=== PATIENT | male | born 1995 | race Caucasian/White ===

== ENCOUNTER 2016-09-19 12:05 | Emergency (ER) | payer MEDICAID ==
[2016-09-19 12:08] VITALS: BMI 25.3
[2016-09-19 12:10] VITALS: BP 126/78; PULSE 82; RESP 15; TEMP 98.6; O2SAT 99
[2016-09-19] MEDS ORDERED: Neomycin/Polymyxin/Hydrocort Otic Susp (10 ml) AS STA (12:41)
--- NOTE | 2016-09-19 12:51 | ED PDOC ---
Arrival/HPI - General Chief Complaint: ENT Problem Time Seen by Provider: 09/19/16 12:30 Historian: Patient - History of Present Illness Narrative History of Present Illness (Text): 09/19/16 12:47 This 21 yo male presents to this ED c/o left ear pain x 2 days. Pain is worsen if ear lobe is pulled. Denies facial or scalp rash. Denies ear trauma, or discharge. Time/Duration: Other (2 days) Symptom Onset: Sudden Symptom Course: Worsening Context: Home Past Medical History - Provider Review Nursing Documentation Reviewed: Yes - Past History Past History: No Previous - Infectious Disease Hx of Infectious Diseases: None - Tetanus Immunization Tetanus Immunization: Unknown, Up to Date - Past Medical History Past Medical History: No Previous - Psychiatric Hx Substance Use: No - Past Surgical History Past Surgical History: No Previous Family/Social History - Physician Review Nursing Documentation Reviewed: Yes Family/Social History: No Known Family HX Smoking Status: Never Smoked Hx Alcohol Use: No Hx Substance Use: No Allergies/Home Meds Allergies/Adverse Reactions: Allergies No Known Allergies Allergy (Verified 09/19/16 12:08) Review of Systems - Review of Systems Constitutional: Normal. absent: Fatigue, Weight Change, Fevers Eyes: Normal ENT: Other (left ear pain) Respiratory: Normal Cardiovascular: Normal Gastrointestinal: Normal Genitourinary Male: Normal Musculoskeletal: Normal Skin: Normal Neurological: Normal Endocrine: Normal Hemo/Lymphatic: Normal Psychiatric: Normal Physical Exam Vital Signs Temp Pulse Resp BP Pulse Ox 09/19/16 12:08 98.6 F 82 15 126/78 99 Temperature: Afebrile Blood Pressure: Normal Pulse: Regular Respiratory Rate: Normal Appearance: Positive for: Well-Appearing, Non-Toxic, Comfortable Pain Distress: None Mental Status: Positive for: Alert and Oriented X 3 - Systems Exam Head: Present: Atraumatic, Normocephalic Pupils: Present: PERRL Extroacular Muscles: Present: EOMI Conjunctiva: Present: Normal Ears: Present: Erythema, Other (right ear is normal). No: Normal Canal, TM Bulging, Fluid, TM Perf Mouth: Present: Moist Mucous Membranes Pharnyx: Present: Normal. No: ERYTHEMA, TONSILS ENLARGED Neck: Present: Normal Range of Motion Respiratory/Chest: Present: Clear to Auscultation, Good Air Exchange. No: Respiratory Distress, Accessory Muscle Use Cardiovascular: Present: Regular Rate and Rhythm, Normal S1, S2. No: Murmurs Back: Present: Normal Inspection Upper Extremity: Present: Normal Inspection, Normal ROM, Capillary Refill < 2s. No: Cyanosis, Edema Lower Extremity: Present: Normal Inspection, NORMAL PULSES, Normal ROM. No: Edema Neurological: Present: GCS=15, CN II-XII Intact, Speech Normal, Motor Func Grossly Intact, Normal Sensory Function, Normal Cerebellar Funct, Gait Normal Skin: Present: Warm, Dry, Normal Color. No: Rashes Psychiatric: Present: Alert, Oriented x 3, Normal Insight, Normal Concentration Medical Decision Making ED Course and Treatment: 09/19/16 12:50 Re-evaluation. Patient feels better. Discussed results and plan with patient who expresses understanding. All questions answered and there is agreement with the plan to discharge home with instructions. Patient stable for discharge. Return if symptoms persist or worsen. Re-evaluation Time: 12:50 Reassessment Condition: Re-examined, Improved - Medication Orders Current Medication Orders: Discontinued Medications Amoxicillin (Amoxil 500 Mg Cap) 500 mg PO STAT STA PRN Reason: Protocol Stop: 09/19/16 12:42 Neomycin/Polymyxin/Hydrocortisone (Cortisporin Otic Susp) 1 ml STAT STA Stop: 09/19/16 12:42 - Procedure PROCEDURE NOTE (Text): 09/19/16 12:51 Left ear canal was irrigated with luke water. Disposition/Present on Arrival - Present on Arrival Any Indicators Present on Arrival: No History of DVT/PE: No History of Uncontrolled Diabetes: No Urinary Catheter: No History of Decub. Ulcer: No History Surgical Site Infection Following: None - Disposition Have Diagnosis and Disposition been Completed?: Yes Diagnosis: Otitis externa Disposition: HOME/ ROUTINE Disposition Time: 12:51 Patient Plan: Discharge Condition: GOOD Discharge Instructions (ExitCare): Otitis Externa (ED) Additional Instructions: Call private doctor for follow up visit in 1-2 days. Take medication as instructed. Return to emergency if symptoms worsen. Call ENT doctor for revaluation. Prescriptions: Amoxicillin [Amoxil 500 mg Cap] 500 mg PO TID #30 cap Neomycin/Polymyxin/Hydrocort [Cortisporin Otic Soln] 4 drop QID #1 bottle Referrals: Evans Gagnon DO [Staff Provider] - Follow up with primary
== END 2016-09-19 13:05 | disposition home or self-care (01) ==
LOC: ED 12:05
DX: H60.92 Unspecified otitis externa, left ear (principal)

== ENCOUNTER 2018-01-20 12:29 | Emergency (ER) | payer OTHER, MEDICAID ==
[2018-01-20 12:45] VITALS: TEMP 98.1; O2SAT 100
[2018-01-20] MEDS ORDERED: TDAP Vaccine 0.5 mL Syr IM ONE (12:58)
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
[2018-01-20 13:07] VITALS: BMI 25.3
[2018-01-20 14:21] VITALS: BP 137/78; PULSE 80; RESP 18
== END 2018-01-20 14:24 | disposition home or self-care (01) ==
LOC: EDBD → EDUNIT# → ED 12:29
DX: S09.90XA Unspecified injury of head, initial encounter (principal); V49.9XXA Car occupant (driver) (passenger) injured in unspecified traffic accident, initial encounter; Y92.411 Interstate highway as the place of occurrence of the external cause; R05 Cough; Z23 Encounter for immunization